=== PATIENT | female | born 1965 | race Caucasian/White ===

== ENCOUNTER 2017-10-21 00:47 | Emergency (ER) | END 2017-10-21 04:45 | disposition home or self-care (01) ==

== ENCOUNTER 2018-08-25 12:54 | Emergency (ER) | payer OTHER ==
[~2018-08-25] VITALS: Ht 157.5 cm; Wt 116.0 kg
[~2018-08-25 12:54] MED LIST: BENA40TA56 PO; DOCU-144 PO; HYDR-3498 PO; HYDR-4011 PO; HYDR12.58 PO; METH750T93 PO; METO-336 PO; NAPR-688 PO; TRAM50TA2 PO
[2018-08-25 12:59] VITALS: Ht 157.5 cm; Wt 116.0 kg
[2018-08-25] MEDS ORDERED: KETOROLAC 30 MG INJ IM STA (13:03)
--- NOTE | 2018-08-25 13:05 | EN ---
Date/Time of Note Date/Time of Note DATE: 08/25/18 TIME: 13:04 ER Progress Note 53-year-old female, morbidly obese, presents the emergency department, complaining of right shoulder pain, after sustaining a mechanical ground-level fall that occurred at home, the patient landed on her hyper stretched arms. No head trauma. The patient currently denies neck pain, no distal weakness, numbness or tingling. The patient refers that the pain is dull, 7/10, associated with decreased range of motion. Patient evaluated in ED 3, orders placed, patient is stable to be seen in ED 2. ALEXANDRA DESAI MD Aug 25, 2018 13:05
[2018-08-25] MEDS ORDERED: morphine LIQ (10 MG/5 ML) CUP PO ONE (13:30)
[2018-08-25] MEDS ORDERED: PROPOFOL 200 MG INJ IV STA (14:19)
--- NOTE | 2018-08-25 14:47 | ERD ---
ER Documentation Chief Complaint Chief Complaint right shoulder pain s/p trip and fall this morning at 0900 HPI Patient is a 53-year-old female, morbidly obese, presents to the ER for concerns of right shoulder pain after trip and fall injury which occurred at home earlier today. Patient states she had a FOOSH injury. Patient states her pain is only in her right shoulder. Patient denies neck pain, back pain, lateral weakness, difficulty unilateral weakness, headache, vomiting or LOC. Patient denies hitting her head. Patient is right-hand dominant. ROS All systems reviewed and are negative except as per history of present illness. Medications Home Meds Active Scripts Methocarbamol* (Robaxin*) 750 Mg Tablet, 750 MG PO Q6H PRN for MUSCLE SPASMS, #20 TAB Prov:GLADYS BLAKELY DO 10/21/17 Naproxen* (Naproxen*) 500 Mg Tablet, 500 MG PO BID PRN for PAIN for 20 Days, TAB Prov:GLADYS BLAKELY DO 10/21/17 Hydrocodone/Acetaminophen (Greene 5-325 Tablet) 1 Each Tablet, 1 EACH PO Q6 PRN for SEVERE PAIN LEVEL 7-10, #20 TAB Prov:GLADYS BLAKELY DO 10/21/17 Tramadol HCl (Tramadol HCl) 50 Mg Tablet, 50 MG PO Q4 PRN for PAIN, #20 TAB Prov:KAM GRAMAJO 04/06/15 Docusate Sodium* (Colace*) 100 Mg Capsule, 100 MG PO DAILY, #20 CAP Prov:LAURA IBARRA CLIENT SERVER DEVELOPER 03/12/14 Hydrocodone Bit/Acetaminophen (Anexsia 5-325 Mg Tablet) 1 Tab Tab, 2 TAB PO Q4H PRN for PAIN, #20 Prov:LAURA IBARRA CLIENT SERVER DEVELOPER 03/12/14 Reported Medications Hydrochlorothiazide* (Hydrochlorothiazide*) 12.5 Mg Tablet, 12.5 MG PO DAILY, TAB 03/11/14 Benazepril Hcl* (Benazepril Hcl*) 40 Mg Tablet, 40 MG PO DAILY, TAB 03/11/14 Metoprolol Succinate* (Toprol XL*) 100 Mg Tab.sr.24h, 100 MG PO DAILY, TAB 03/11/14 Allergies Allergies: Coded Allergies: No Known Allergy (Unverified , 03/11/14) PMhx/Soc History of Surgery: Yes (Hernia, appendectomy) Anesthesia Reaction: No Hx Neurological Disorder: No Hx Respiratory Disorders: No Hx Cardiac Disorders: Yes (htn) Hx Psychiatric Problems: No Hx Miscellaneous Medical Probl: Yes (psoriasis, athritis) Hx Alcohol Use: No Hx Substance Use: No Hx Tobacco Use: No Smoking Status: Never smoker FmHx Family History: No diabetes Physical Exam Vitals Vital Signs Date Temp Pulse Resp B/P (MAP) Pulse Ox O2 O2 Flow FiO2 Time Delivery Rate 08/25/18 98.3 72 18 171/112 97 12:59 (131) Physical Exam GENERAL: Obese female. Appears uncomfortable secondary to pain. HEAD: Normocephalic, atraumatic. EYES: Pupils are equally reactive bilaterally. EOMs grossly intact. No conjunctival erythema. ENT: Moist mucous membranes. No uvula deviation. No kissing tonsils. NECK: Supple. No meningismus. Normal range of motion of the neck. LUNG: no acute respiratory distress EXTREMITIES: Equal pulses bilaterally. No peripheral clubbing, cyanosis or edema. No unilateral leg swelling. NEUROLOGIC: Alert and oriented. Moving all four extremities without any difficulty. Normal speech. Steady gait. SKIN: Normal color. Warm and dry. No rashes or lesions. RUE: Deformity noted to the shoulder. Patient unable to lift shoulder secondary to pain and deformity. Normal range of motion of elbow. Nontender to palpation of distal humerus, forearm sensation intact to light touch. Neurovascularly intact. (Able to give thumbs up, make an ok sign, cross digits 2 and 3, thumb to pinky opposition. 2+ RP.) Results 24 hrs Current Medications Medications Dose Sig/Esthela Start Time Status Last (Trade) Ordered Route PRN Stop Time Admin Dose Reason Admin Ketorolac 30 mg ONCE STAT 08/25/18 DC 08/25/18 Tromethamine IM 13:03 13:14 (Toradol) 08/25/18 13:06 Morphine 10 mg ONCE ONCE 08/25/18 DC 08/25/18 Sulfate PO 13:30 13:14 (morphine) 08/25/18 13:31 Propofol 200 mg ONCE STAT 08/25/18 DC (Diprivan) IV 14:19 08/25/18 14:20 Procedures/MDM ED COURSE: The patient was stable throughout ED course. I kept the patient and/or family informed of laboratory and diagnostic imaging results throughout the ED course. DIAGNOSTIC IMAGING: Read by radiologist. Patient: JOSE MCKEON : 1965 Age: 53 Sex: F MR #: [id number] DOS: 08/25/18 1303 Ordering MD: ALEXANDRA DESAI MD Location: FT Room/Bed: PROCEDURE: XR right shoulder. CLINICAL INDICATION: Pain TECHNIQUE: AP, Internal and external rotation views of the right shoulder were performed. COMPARISON: None. FINDINGS: There is evidence of right anterior shoulder dislocation. There is no gross fracture visualized. There is normal osseous mineralization. The soft tissues are unremarkable. RPTAT: AA IMPRESSION: Evidence of right anterior shoulder dislocation. .Christopher Brooks MD, Date Time Electronically viewed and signed by .Christopher Brooks MD, MD on 08/25/2018 14:02 .S/ CC: ALEXANDRA DESAI MD [id number] PROCEDURES: SPLINT APPLICATION: The patient was verbally consented at bedside prior to splint application. Patient was explained the risks, benefits and alternatives to this procedure. The patient was neurovascularly intact prior to and status post application of the splint. The patient tolerated the procedure well with no complications. Splint type: shoulder immobilizer Extremity: right Indication: Shoulder dislocation MEDICATIONS GIVEN: Morphine PO, Toradol ordered by Dr. Odonnell MEDICAL DECISION MAKING: Patient is a 53-year-old female, past medical history of hypertension, morbidly obese, presents the ER for concerns of right shoulder pain after trip and fall injury at home earlier today. Vital signs were reviewed. Patient is afebrile. Patient was not hypoxic. Patient was given morphine p.o. and Toradol, orders placed by Dr. Odonnell. Shoulder x-ray showed evidence of right anterior shoulder dislocation. Case discussed with Dr. Barger. She will require shoulder reduction under conscious sedation. Patient will be transferred to ED 1 for further work-up and management. Departure Diagnosis: Primary Impression: Anterior shoulder dislocation SAMREEN ROBERTS PA-C Aug 25, 2018 14:47
[2018-08-25] MEDS ORDERED: morphine 4 MG/ML VIAL IV STA (14:50)
[2018-08-25] MEDS ORDERED: BENA40TA56 PO ×2 (14:50→17:56)
[2018-08-25] MEDS ORDERED: ONDANSETRON 4 MG INJ IV STA (14:50)
[2018-08-25] MEDS ORDERED: HYDR25TA6 PO (14:50)
[2018-08-25] MEDS ORDERED: METO-336 PO ×2 (14:50→17:56)
--- NOTE | 2018-08-25 15:23 | QN ---
Documentation Comment Procedural Sedation: Pre-assessment performed. See preceding complete history and physical for details. Time out performed. See sedation documentation for details. Medication(s): Propofol 60 mg IV then 40 mill grams IV for a total of 100 mg Complications: The patient became hypoxic to approximately 69% likely from significant obesity and hypoventilation syndrome. We are able to bag the patient for approximately 10 seconds with good response and oxygen saturation quickly improved to 95%. ASA class II Recovered without incident. Greater than 15 minutes of face to face time included in sedation and recovery. Shoulder Reduction by me: Anesthesia: Morphine for pain and propofol for sedation Location: Right shoulder Technique: External rotation Results: [employer] of normal anatomic positioning Compl: Neurovascularly intact post procedure. Splint Note Type: Shoulder immobilizer Location: Right upper extremity Indication: Shoulder dislocation post reduction Splint Assessment: Neurovascularly intact post splint placement with good fit. Post-reduction X-ray Shoulder 3V Interpreted by me: Bones: No fracture Joints: Relocation of previously noted dislocation Foreign body: None JOSE LOPEZ MD Aug 25, 2018 15:23
[2018-08-25] MEDS ORDERED: IBUP-1542 PO (15:55)
[2018-08-25] MEDS ORDERED: HYDR-4011 PO ×2 (15:55→17:46)
[2018-08-25] MEDS ORDERED: NALO4SPR NS (15:58)
[2018-08-25] MEDS ORDERED: HYDROCODONE/APAP (10/325) TAB PO ONE (16:00)
[2018-08-25 16:36] VITALS: BP 131/78; PULSE 69; RESP 20
[2018-08-25] MEDS ORDERED: DOCU-144 PO (17:03)
[2018-08-25] MEDS ORDERED: DORZ1DRO7 RIGHT EYE (17:03)
[2018-08-25] MEDS ORDERED: CLON1PAT2 TD (17:03)
[2018-08-25] MEDS ORDERED: CLONI (17:03)
[2018-08-25] MEDS ORDERED: [UNRECOGNIZED DRUG - CODE] PO (17:03)
[2018-08-25] MEDS ORDERED: BISA-57 PO (17:03)
[2018-08-25] MEDS ORDERED: CRAN425C6 PO (17:03)
[2018-08-25] MEDS ORDERED: MINE133E23 PR (17:10)
[2018-08-25] MEDS ORDERED: FER325 PO (17:10)
[2018-08-25] MEDS ORDERED: HEPA500021 IJ (17:10)
[2018-08-25] MEDS ORDERED: AMIN30LI PO (17:46)
[2018-08-25] MEDS ORDERED: HYDR-3670 PO (17:46)
[2018-08-25] MEDS ORDERED: LACT20SO2 PO (17:46)
[2018-08-25] MEDS ORDERED: SEVE0.8P PO (17:46)
[2018-08-25] MEDS ORDERED: ACET325T33 PO (17:46)
[2018-08-25] MEDS ORDERED: LINA5TAB PO (17:46)
[2018-08-25] MEDS ORDERED: ASCO500C7 PO (17:46)
[2018-08-25] MEDS ORDERED: NIFE30TA23 PO (17:46)
[2018-08-25] MEDS ORDERED: ONDA4TAB13 PO (17:46)
[2018-08-25] MEDS ORDERED: ACET-141 PO ×2 (17:46)
[2018-08-25] MEDS ORDERED: INSU100C3 SQ (17:46)
[2018-08-25] MEDS ORDERED: LANT3I SC (17:46)
[2018-08-25] MEDS ORDERED: NEPH PO (17:46)
[2018-08-25] MEDS ORDERED: CRAN3875 PO (17:46)
[2018-08-25] MEDS ORDERED: MAGN400O19 PO (17:50)
[2018-08-25] MEDS ORDERED: HYDR12.58 PO (17:56)
== END 2018-08-25 17:04 | disposition home or self-care (01) ==
LOC: FTE 12:54 → E/R 17:04
DX: S43.014A Anterior dislocation of right humerus, initial encounter (principal); I10 Essential (primary) hypertension; W01.0XXA Fall on same level from slipping, tripping and stumbling without subsequent striking against object, initial encounter; Y92.009 Unspecified place in unspecified non-institutional (private) residence as the place of occurrence of the external cause
CPT/HCPCS: 29105; 73030; 94770; 96372; 96374; 96375; 96376; 99284; J1885; J2270; J2405